=== PATIENT | male | born 1955 | race Caucasian/White ===

== ENCOUNTER → 2016-05-18 | Outpatient (CLI) | payer OTHER ==
[~2016-05-18] MED LIST: OMEPRAZOLE20 MG PO; PRINIVIL20 MG PO; SINGULAIR10 MG PO
== END ==
LOC: RAD 08:32
DX: M25.562 Pain in left knee (principal); Z02.6 Encounter for examination for insurance purposes; M19.90 Unspecified osteoarthritis, unspecified site

== ENCOUNTER → 2016-05-19 | Outpatient (CLI) | payer OTHER | LOC: RAD 06:52 | DX: M25.562 Pain in left knee (principal); Z02.6 Encounter for examination for insurance purposes; M13.862 Other specified arthritis, left knee; M13.861 Other specified arthritis, right knee ==

== ENCOUNTER 2016-06-30 13:00 | Outpatient (RCR) | payer SELFPAY ==
[2013-05-13 14:22] VITALS: BP 131/93
== END 2016-08-19 11:55 | disposition home or self-care (01) ==
LOC: PT 13:00
DX: M54.2 Cervicalgia (principal)

== ENCOUNTER 2017-05-28 09:28 | Emergency (ER) | payer SELFPAY ==
[~2017-05-28] VITALS: Ht 182.9 cm; Wt 95.9 kg
[~2017-05-28 09:28] MED LIST changes: +SINGULAIR PO; -SINGULAIR10 MG PO
[2017-05-28] MEDS ORDERED: PROAIR HFA0.09 MG/AC IH (10:10)
[2017-05-28 11:07] LABS: EOS # 0.1 (0.04-0.40); EOS % 1.7 % (0.0-4.0); HEMATOCRIT 45.9 % (42.0-52.0); HEMOGLOBIN 15.9 g/dL (13.5-18.0); LYMPH# 1.9 (1.50-4.00); MEAN CELL VOLUME 89 fl (78-100); MEAN CORPUSCULAR HEMOGLOBIN 31 pg (27-31); MEAN CORPUSCULAR HGB CONC 35 g/dL (33-37); MEAN PLATELET VOLUME 9.8 fl (7.4-10.4); MONO # 0.5 (0.20-0.80); NEU # 2.7 (1.40-6.50); PLATELET COUNT 213 K/mm3 (130-400); RED BLOOD COUNT 5.18 M/mm3 (4.20-5.60); RED CELL DISTRIBUTION WIDTH 12.4 % (11.5-14.5); WHITE BLOOD COUNT 5.3 K/mm3 (4.8-10.8)
[2017-05-28 11:15] LABS: BUN/CREATININE RATIO 13.9 (6.0-26.0); CALCIUM 9.1 mg/dL (8.4-10.2); TOTAL BILIRUBIN 0.4 mg/dL (0.2-1.3); TOTAL PROTEIN 7.2 g/dL (6.3-8.2)
[2017-05-28 11:40] LABS: URINE APPEARANCE CLEAR; URINE COLOR YELLOW
[2017-05-28 11:41] LABS: PH-URINE 7.5 (5.0 - 8.0); URINE BILIRUBIN NEGATIVE (NEGATIVE); URINE BLOOD NEGATIVE (NEGATIVE); URINE GLUCOSE NEGATIVE (NEGATIVE); URINE KETONE NEGATIVE (NEGATIVE); URINE LEUKOCYTE ESTERASE NEGATIVE (NEGATIVE); URINE NITRATE NEGATIVE (NEGATIVE); URINE PROTEIN(semi-quant) NEGATIVE (NEGATIVE); URINE UROBILINOGEN NORMAL (NORMAL); URINE WBC 0-1 /hpf (0-3)
[2017-05-28] MEDS ORDERED: METOPROLOL SUCC50 M1 PO (13:45)
[2017-05-28 13:55] VITALS: BP 145/92
== END 2017-05-28 13:59 | disposition home or self-care (01) ==
LOC: ED 09:28
PROVIDERS: Family Medicine
DX: I10 Essential (primary) hypertension (principal); R20.8 Other disturbances of skin sensation; J45.909 Unspecified asthma, uncomplicated

== ENCOUNTER → 2017-06-23 | Outpatient (CLI) | payer SELFPAY ==
[2017-05-28 13:55] VITALS: BP 145/92
[~2017-06-23] MED LIST changes: +METOPROLOL SUCC50 M1 PO; +PROAIR HFA0.09 MG/AC IH
== END ==
LOC: RAD 08:37
DX: E04.2 Nontoxic multinodular goiter (principal)

== ENCOUNTER → 2017-07-05 | Outpatient (CLI) | payer SELFPAY ==
[2017-07-05 08:08] LABS: EOS # 0.1 (0.04-0.40); EOS % 2.7 % (0.0-4.0); HEMATOCRIT 43.5 % (42.0-52.0); HEMOGLOBIN 15.1 g/dL (13.5-18.0); LYMPH# 1.9 (1.50-4.00); MEAN CELL VOLUME 88 fl (78-100); MEAN CORPUSCULAR HEMOGLOBIN 31 pg (27-31); MEAN CORPUSCULAR HGB CONC 35 g/dL (33-37); MEAN PLATELET VOLUME 9.9 fl (7.4-10.4); MONO # 0.6 (0.20-0.80); NEU # 2.3 (1.40-6.50); PLATELET COUNT 195 K/mm3 (130-400); RED BLOOD COUNT 4.92 M/mm3 (4.20-5.60); RED CELL DISTRIBUTION WIDTH 12.4 % (11.5-14.5); WHITE BLOOD COUNT 4.9 K/mm3 (4.8-10.8)
[2017-07-05 08:38] LABS: ALBUMIN 3.9 g/dL (3.5-5.0); BUN/CREATININE RATIO 18.4 (6.0-26.0); POTASSIUM 4.3 mmol/L (3.6-5.0); TOTAL BILIRUBIN 0.6 mg/dL (0.2-1.3); TOTAL PROTEIN 7.3 g/dL (6.3-8.2)
== END ==
LOC: LAB 07:40
PROVIDERS: Nurse Practitioner Family
DX: Z00.00 Encounter for general adult medical examination without abnormal findings (principal); Z86.73 Personal history of transient ischemic attack (TIA), and cerebral infarction without residual deficits; E04.2 Nontoxic multinodular goiter; J45.20 Mild intermittent asthma, uncomplicated; I10 Essential (primary) hypertension; K21.9 Gastro-esophageal reflux disease without esophagitis; R73.01 Impaired fasting glucose

== ENCOUNTER → 2019-09-20 | Outpatient (CLI) | payer SELFPAY | LOC: RAD 15:06 | DX: S99.911A Unspecified injury of right ankle, initial encounter (principal) ==

== ENCOUNTER 2020-03-14 15:44 | Emergency (ER) | payer SELFPAY ==
[2020-03-14] MEDS ORDERED: CEPHALEXIN500 M1 PO (17:37)
[2020-03-14 17:53] VITALS: BP 129/98
== END 2020-03-14 17:45 | disposition home or self-care (01) ==
LOC: ED 15:44
DX: S51.012A Laceration without foreign body of left elbow, initial encounter (principal); M25.561 Pain in right knee; I10 Essential (primary) hypertension; J45.909 Unspecified asthma, uncomplicated; Z23 Encounter for immunization; Z79.82 Long term (current) use of aspirin; Z79.83 Long term (current) use of bisphosphonates; Z79.899 Other long term (current) drug therapy; W12.XXXA Fall on and from scaffolding, initial encounter; Y92.009 Unspecified place in unspecified non-institutional (private) residence as the place of occurrence of the external cause; Y99.0 Civilian activity done for income or pay
CPT/HCPCS: 90715

== ENCOUNTER → 2020-05-02 | Outpatient (CLI) | payer SELFPAY ==
[~2020-05-02] MED LIST changes: +CEPHALEXIN500 M1 PO
== END ==
LOC: CARDREHAB 07:52 → CARDLAB 13:24
DX: I20.9 Angina pectoris, unspecified (principal); I10 Essential (primary) hypertension; Z82.49 Family history of ischemic heart disease and other diseases of the circulatory system

== ENCOUNTER → 2021-10-30 | Outpatient (CLI) | payer MEDICARE | LOC: RAD 10:33 | DX: Z01.818 Encounter for other preprocedural examination (principal); I44.0 Atrioventricular block, first degree ==

== ENCOUNTER 2021-11-30 09:55 | Outpatient (RCR) | payer MEDICARE | END 2021-12-23 | disposition home or self-care (01) | LOC: PT | DX: M17.12 Unilateral primary osteoarthritis, left knee (principal) ==

== ENCOUNTER 2021-12-25 08:20 | Outpatient (RCR) | payer MEDICARE | END 2022-01-19 14:26 | disposition home or self-care (01) | LOC: PT 08:20 | DX: M17.12 Unilateral primary osteoarthritis, left knee (principal) ==

== ENCOUNTER → 2022-03-20 | Outpatient (CLI) | payer MEDICARE | LOC: RAD 14:15 | DX: Z03.822 Encounter for observation for suspected aspirated (inhaled) foreign body ruled out (principal); R50.9 Fever, unspecified; R05.3 Chronic cough; Z20.822 Contact with and (suspected) exposure to COVID-19 ==

== ENCOUNTER → 2023-07-04 | Day surgery (SDC) | payer MEDICARE | END | disposition home or self-care (01) | LOC: MSO 09:22 | DX: Z12.11 Encounter for screening for malignant neoplasm of colon (principal); Z80.0 Family history of malignant neoplasm of digestive organs | CPT/HCPCS: 00812; J2704; J7120 ==

== ENCOUNTER → 2023-10-18 | Outpatient (CLI) | payer MEDICARE ==
[~2023-10-18] MED LIST changes: +Iohexol 300 - 100 ML VIAL IV ONE
== END ==
LOC: RAD 10:32
DX: M47.26 Other spondylosis with radiculopathy, lumbar region (principal); N40.0 Benign prostatic hyperplasia without lower urinary tract symptoms; M89.9 Disorder of bone, unspecified; R16.1 Splenomegaly, not elsewhere classified; N20.0 Calculus of kidney; S32.030A Wedge compression fracture of third lumbar vertebra, initial encounter for closed fracture; M47.812 Spondylosis without myelopathy or radiculopathy, cervical region
CPT/HCPCS: Q9967